=== PATIENT | male | born 1955 | race African-American/Black ===

== ENCOUNTER 2018-09-10 14:10 | Emergency (ER) | payer OTHER ==
[2018-09-10 14:30] LABS: Absolute Lymphocytes (CBC) 1.9 K/uL (0.7-4.9); Hematocrit 38.1 % (39.6-49.0); Lymphocytes % 34.8 % (15.3-44.8); MPV 8.6 fL (7.6-11.3); RBC Red Blood Cell Count 4.45 M/uL (4.33-5.43)
[2018-09-10] MEDS ORDERED: D50W 25 GM/50 ML SYRINGE IV ONE (14:33)
[2018-09-10 15:03] LABS: Potassium 4.3 mmol/L (3.5-5.1)
--- NOTE | 2018-09-10 16:11 | RAD REPORT ---
EXAM DESCRIPTION: CT - Stone Protocol - 09/10/2018 3:50 pm CLINICAL HISTORY: Abdominal pain COMPARISON: None. TECHNIQUE: Axial [address] imaging of the abdomen and pelvis was performed without IV contrast. No IV contrast was given because of allergy, abnormal renal function, patient refusal or physician re quest. No oral contrast given. All CT scans are performed using dose optimization technique as appropriate and may include automated exposure control or mA/KV adjustment according to patient size. FINDINGS: No suspicious findings in the lung bases. No pericardial thickening or effusion. The liver, spleen and pancreas show no suspicious findings on non-contrast imaging. Gallbladder and b iliary tree are also without suspicious finding. No hydronephrosis or suspicious renal mass. No significant adrenal finding. Isodense renal masses an d pyelonephritis cannot be excluded in the absence of IV contrast. The urinary bladder is without sig nificant finding. No dilated bowel loops or bowel wall thickening. No free air, free fluid or inflammatory stranding. N o hernia, mass or bulky lymphadenopathy. Moderate stool volume is present in the colon. Bony degenerative changes are present. Fusion changes are present L4-S1. No CT finding to suspect dis citis or osteomyelitis. Posterior elements are fused. IMPRESSION: Non-contrast enhanced CT abdomen and pelvis imaging show no acute finding. Full assessment is limited is the absence of IV contrast.
--- NOTE | 2018-09-10 16:15 | EDPHYS ---
Physician Documentation [facility] Name: Ronny Rock Age: 63 yrs Sex: Male : 1955 Arrival Date: 09/10/2018 Time: 14:11 Bed 26 Private MD: ED Physician Sunil Gray HPI: 09/10 14:38 This 63 yrs old Black Male presents to ER via Wheelchair with complaints of Low Blood maite Sugar. 14:38 This 63 yrs old Black Male presents to ER via Wheelchair with complaints of Low Blood maite Sugar. 14:38 The patient or guardian reports decreased level of consciousness, hypoglycemia, that maite was potentially precipitated by eating, less. Onset: The symptoms/episode began/occurred just prior to arrival. Associated signs and symptoms: Pertinent positives: None. Current symptoms: In the emergency department the patient's symptoms are unchanged from the initial presentation, despite home interventions. The patient has experienced similar episodes in the past, a few times. Historical: - Allergies: 14:20 No Known Allergies; sv - PMHx: 14:20 Diabetes - IDDM; sv - Immunization history:: Adult Immunizations up to date. - Social history:: Smoking status: Patient/guardian denies using tobacco. - Family history:: not pertinent. - Ebola Screening: : Patient negative for fever greater than or equal to 101.5 degrees Fahrenheit, and additional compatible Ebola Virus Disease symptoms Patient denies exposure to infectious person Patient denies travel to an Ebola-affected area in the 21 days before illness onset. ROS: 14:38 Constitutional: Negative for fever, chills, and weight loss, Eyes: Negative for injury, maite pain, redness, and discharge, ENT: Negative for injury, pain, and discharge, Neck: Negative for injury, pain, and swelling, Cardiovascular: Negative for chest pain, palpitations, and edema, Respiratory: Negative for shortness of breath, cough, wheezing, and pleuritic chest pain, Abdomen/GI: Negative for abdominal pain, nausea, vomiting, diarrhea, and constipation, Back: Negative for injury and pain, : Negative for injury, bleeding, discharge, and swelling, MS/Extremity: Negative for injury and deformity, Skin: Negative for injury, rash, and discoloration, Psych: Negative for depression, anxiety, suicide ideation, homicidal ideation, and hallucinations, Allergy/Immunology: Negative for hives, rash, and allergies, Hematologic/Lymphatic: Negative for swollen nodes, abnormal bleeding, and unusual bruising. 14:38 Neuro: Positive for dizziness, weakness. 14:38 Endocrine: Negative for goiter, cold intolerance, heat intolerance, polydipsia, polyphagia, polyuria, weight gain, weight loss, acute changes. Exam: 14:42 Constitutional: This is a well developed, well nourished patient who is awake, alert, maite and in no acute distress. Head/Face: Normocephalic, atraumatic. Eyes: Pupils equal round and reactive to light, extra-ocular motions intact. Lids and lashes normal. Conjunctiva and sclera are non-icteric and not injected. Cornea within normal limits. Periorbital areas with no swelling, redness, or edema. ENT: Nares patent. No nasal discharge, no septal abnormalities noted. Tympanic membranes are normal and external auditory canals are clear. Oropharynx with no redness, swelling, or masses, exudates, or evidence of obstruction, uvula midline. Mucous membranes moist. Neck: Trachea midline, no thyromegaly or masses palpated, and no cervical lymphadenopathy. Supple, full range of motion without nuchal rigidity, or vertebral point tenderness. No Meningismus. Chest/axilla: Normal chest wall appearance and motion. Nontender with no deformity. No lesions are appreciated. Cardiovascular: Regular rate and rhythm with a normal S1 and S2. No gallops, murmurs, or rubs. Normal PMI, no JVD. No pulse deficits. Respiratory: Lungs have equal breath sounds bilaterally, clear to auscultation and percussion. No rales, rhonchi or wheezes noted. No increased work of breathing, no retractions or nasal flaring. Abdomen/GI: Soft, non-tender, with normal bowel sounds. No distension or tympany. No guarding or rebound. No evidence of tenderness throughout. Back: No spinal tenderness. No costovertebral tenderness. Full range of motion. Male : Normal genitalia with no discharge or lesions. Skin: Warm, dry with normal turgor. Normal color with no rashes, no lesions, and no evidence of cellulitis. MS/ Extremity: Pulses equal, no cyanosis. Neurovascular intact. Full, normal range of motion. Neuro: Awake and alert, GCS 15, oriented to person, place, time, and situation. Cranial nerves II-XII grossly intact. Motor strength 5/5 in all extremities. Sensory grossly intact. Cerebellar exam normal. Normal gait. Psych: Awake, alert, with orientation to person, place and time. Behavior, mood, and affect are within normal limits. Vital Signs: 14:18 BP 122 / 81 LA (auto/lg); Pulse 89; Temp 97.7(O); Pulse Ox 100% ; Pain 1/10; jp3 14:21 BP 122 / 81; Pulse 91; Resp 18; Pulse Ox 100% ; Weight 106.59 kg; Height 5 ft. 7 in. sv (170.18 cm); Pain 0/10; 15:36 BP 114 / 70; Pulse 79; Resp 17 S; Pulse Ox 98% on R/A; ca1 16:27 BP 116 / 77; Pulse 88; Resp 16 S; Pulse Ox 97% on R/A; ca1 14:21 Body Mass Index 36.81 (106.59 kg, 170.18 cm) sv MDM: 14:19 Patient medically screened. [facility] 09/10 14:18 Order name: CBC with Diff; Complete Time: 14:48 09/10 14:18 Order name: Basic Metabolic Panel; Complete Time: 15:21 09/10 14:20 Order name: glucometer results - FOR PT WITH NO ID; Complete Time: 14:48 09/10 15:03 Order name: Glucose, Ancillary Testing; Complete Time: 15:07 [facility] 09/10 15:03 Order name: Glucose, Ancillary Testing; Complete Time: 15:07 [facility] 09/10 15:25 Order name: Urine Culture [facility] 09/10 14:18 Order name: Diet Ada 2000 Allan; Complete Time: 14:21 09/10 14:58 Order name: Blood Glucose Level; Complete Time: 15:06 [facility] 09/10 15:25 Order name: CT Stone Protocol; Complete Time: 16:13 [facility] 09/10 15:25 Order name: Urine Dipstick-Ancillary (obtain specimen); Complete Time: 15:33 [facility] 09/10 15:37 Order name: Urine Dipstick--Ancillary (enter results) 09/10 16:14 Order name: Blood Glucose Level; Complete Time: 16:24 [facility] 09/10 16:27 Order name: Glucose, Ancillary Testing [facility] 09/10 16:14 Order name: PO challenge: juice; Complete Time: 16:24 [facility] Administered Medications: 14:21 Drug: D50W 50 ml Route: IVP; Site: right antecubital; ca1 15:36 Follow up: Response: No adverse reaction; Blood sugar is elevated ca1 Point of Care Testing: Blood Glucose: 14:15 Blood Glucose: 35 mg/dL; sv 15:00 Blood Glucose: 116 mg/dL; ca1 16:27 Blood Glucose: 122 mg/dL; ca1 Ranges: Critical Glucose Levels:Adult <50 mg/dl or >400 mg/dl <40 mg/dl or >180 mg/dl Disposition: 09/10/18 16:13 Discharged to Home. Impression: Type 1 diabetes mellitus, Hypoglycemia, unspecified, Unspecified kidney failure. - Condition is Stable. - Discharge Instructions: Hypoglycemia, Blood Glucose Monitoring, Adult, Chronic Kidney Disease, Adult, [id number], Hypoglycemia, [id number]. - Medication Reconciliation Form, Thank You Letter, Antibiotic Education, Prescription Opioid Use form. - Follow up: Private Physician; When: 2 - 3 days; Reason: Recheck today's complaints, Continuance of care, Re-evaluation by your physician. Follow up: Bethany Smith; When: 2 - 3 days; Reason: Recheck today's complaints, Continuance of care, Re-evaluation by your physician. - Problem is new. - Symptoms have improved. Signatures: Dispatcher [employer] [facility] Adriana Jacobs RN RN sv Anderson, Corey, MD MD cha Acob, Cheryl, RN RN ca1 Corrections: (The following items were deleted from the chart) 16:50 16:13 09/10/2018 16:13 Discharged to Home. Impression: Type 1 diabetes mellitus; ca1 Hypoglycemia, unspecified; Unspecified kidney failure. Condition is Stable. Discharge Instructions: Hypoglycemia, Blood Glucose Monitoring, Adult, Hypoglycemia, [id number], Chronic Kidney Disease, Adult, [id number]. Forms are Medication Reconciliation Form, Thank You Letter, Antibiotic Education, Prescription Opioid Use. Follow up: Private Physician; When: 2 - 3 days; Reason: Recheck today's complaints, Continuance of care, Re-evaluation by your physician. Follow up: Bethany Smith; When: 2 - 3 days; Reason: Recheck today's complaints, Continuance of care, Re-evaluation by your physician. Problem is new. Symptoms have improved. maite
--- NOTE | 2018-09-10 16:15 | ER ---
Nurse's Notes [facility] Name: Ronny Rock Age: 63 yrs Sex: Male : 1955 Arrival Date: 09/10/2018 Time: 14:11 Bed 26 Private MD: Diagnosis: Type 1 diabetes mellitus;Hypoglycemia, unspecified;Unspecified kidney failure Presentation: 09/10 14:13 Presenting complaint: Patient states: diaphoretic and confusion started about 30 mins sv ago. Hx DM. Transition of care: patient was not received from another setting of care. Onset of symptoms was September 10, 2018. Care prior to arrival: None. 14:13 Method Of Arrival: Wheelchair sv 14:13 Acuity: ENID 2 sv 14:[address] Gray of the BS of 35. sv 14:30 Risk Assessment: Do you want to hurt yourself or someone else? Patient reports no ca1 desire to harm self or others. Initial Sepsis Screen: Does the patient meet any 2 criteria? No. Patient's initial sepsis screen is negative. Does the patient have a suspected source of infection? No. Patient's initial sepsis screen is negative. Historical: - Allergies: 14:20 No Known Allergies; sv - PMHx: 14:20 Diabetes - IDDM; sv - Immunization history:: Adult Immunizations up to date. - Social history:: Smoking status: Patient/guardian denies using tobacco. - Family history:: not pertinent. - Ebola Screening: : Patient negative for fever greater than or equal to 101.5 degrees Fahrenheit, and additional compatible Ebola Virus Disease symptoms Patient denies exposure to infectious person Patient denies travel to an Ebola-affected area in the 21 days before illness onset. Screenin:31 Abuse screen: Denies threats or abuse. Denies injuries from another. Nutritional ca1 screening: No deficits noted. Tuberculosis screening: No symptoms or risk factors identified. Fall Risk IV access (20 points). Assessment: 14:31 General: Appears in no apparent distress. comfortable, Behavior is calm, cooperative, ca1 appropriate for age. Pain: Denies pain. Neuro: Level of Consciousness is awake, alert, obeys commands, Oriented to person, place, time, situation, Supervisor Tumblers are equal bilaterally Moves all extremities. Gait is steady, Speech is normal, Facial symmetry appears normal, Reports dizziness. Cardiovascular: Heart tones S1 S2 present Capillary refill < 3 seconds Patient's skin is warm and dry. Respiratory: Airway is patent Respiratory effort is even, unlabored, Respiratory pattern is regular, symmetrical, Breath sounds are clear bilaterally. GI: Abdomen is round non-distended, Bowel sounds present X 4 quads. Abd is soft and non tender X 4 quads. : No deficits noted. No signs and/or symptoms were reported regarding the genitourinary system. EENT: No deficits noted. No signs and/or symptoms were reported regarding the EENT system. Derm: Skin is intact, is healthy with good turgor, Skin is pink, warm \T\ dry. Musculoskeletal: Circulation, motion, and sensation intact. Capillary refill < 3 seconds, Range of motion: intact in all extremities. 14:34 Reassessment: Diabetic Diet served to pt. ca1 15:00 Reassessment: Patient appears in no apparent distress at this time. Patient is alert, ca1 oriented x 3, equal unlabored respirations, skin warm/dry/pink. Ate half of food served. 15:36 Reassessment: Patient appears in no apparent distress at this time. Patient and/or ca1 family updated on plan of care and expected duration. Pain level reassessed. Patient is alert, oriented x 3, equal unlabored respirations, skin warm/dry/pink. 16:27 Reassessment: Patient appears in no apparent distress at this time. Patient is alert, ca1 oriented x 3, equal unlabored respirations, skin warm/dry/pink. Patient states feeling better. Vital Signs: 14:18 BP 122 / 81 LA (auto/lg); Pulse 89; Temp 97.7(O); Pulse Ox 100% ; Pain 1/10; jp3 14:21 BP 122 / 81; Pulse 91; Resp 18; Pulse Ox 100% ; Weight 106.59 kg; Height 5 ft. 7 in. sv (170.18 cm); Pain 0/10; 15:36 BP 114 / 70; Pulse 79; Resp 17 S; Pulse Ox 98% on R/A; ca1 16:27 BP 116 / 77; Pulse 88; Resp 16 S; Pulse Ox 97% on R/A; ca1 14:21 Body Mass Index 36.81 (106.59 kg, 170.18 cm) sv ED Course: 14:11 Patient arrived in ED. as 14:17 Inserted saline lock: 20 gauge in right antecubital area, using aseptic technique. sv ,using aseptic technique. done by Pam DESOUZA Blood collected. 14:19 Triage completed. sv 14:19 Sunil Gray MD is Attending Physician. maite 14:19 Patient maintains SpO2 saturation greater than 95% on room air. jp3 14:19 Bed in low position. Call light in reach. Side rails up X 1. Verbal reassurance given. jp3 Pulse ox on. NIBP on. 14:30 Arm band placed on right wrist. ca1 14:31 Pam Kenyon, DEO is Primary Nurse. ca1 14:31 No provider procedures requiring assistance completed. ca1 14:32 Patient has correct armband on for positive identification. ca1 14:50 Diet: Patient given a regular meal tray. Tolerated well. jp3 15:20 Urine collected: clean catch specimen, clear, tracey colored. jp3 15:36 Urine Culture Sent. jp3 15:36 Warm blanket given. jp3 15:[address] via stretcher. ca1 15:50 CT completed. Patient tolerated procedure well. Patient moved back from CT. mw3 15:53 CT Stone Protocol In Process Unspecified. EDMS 16:13 Bethany Smith MD is Referral Physician. maite 16:49 IV discontinued, intact, bleeding controlled, No redness/swelling at site. Pressure ca1 dressing applied. Administered Medications: 14:21 Drug: D50W 50 ml Route: IVP; Site: right antecubital; ca1 15:36 Follow up: Response: No adverse reaction; Blood sugar is elevated ca1 Point of Care Testing: Blood Glucose: 14:15 Blood Glucose: 35 mg/dL; sv 15:00 Blood Glucose: 116 mg/dL; ca1 16:27 Blood Glucose: 122 mg/dL; ca1 Ranges: Outcome: 16:13 Discharge ordered by . matie 16:49 Discharged to home via wheelchair, with family. ca1 16:49 Condition: stable 16:49 Discharge instructions given to patient, Instructed on discharge instructions, follow up and referral plans. Demonstrated understanding of instructions, follow-up care. 16:50 Patient left the ED. ca1 Signatures: Dispatcher [employer] Adriana Andrew RN RN sv Anderson, Corey, MD MD cha Martinez, Amelia as Willis, Michelle mw3 Pisarski, Nitin jp3 Acob, Pam, RN RN ca1
[2018-09-10 16:16] LABS: Urine Blood NEGATIVE (NEG); Urine Glucose TRACE (NEG); Urine Protein NEGATIVE (NEG); Urine pH 5.5 (5.0-7.0)
== END 2018-09-10 16:50 | disposition home or self-care (01) ==
LOC: ER 14:10
DX: E10.649 Type 1 diabetes mellitus with hypoglycemia without coma (principal); N19 Unspecified kidney failure
CPT/HCPCS: 36415; 74176; 76377; 80048; 81003; 82962; 85025; 87086; 87088; 96374; 99285